=== PATIENT | male | born 1965 | race Caucasian/White ===

== ENCOUNTER 2018-10-02 15:59 | Emergency (ER) | payer SELFPAY ==
[~2018-10-02] VITALS: Ht 170.2 cm; Wt 94.0 kg
[2018-10-02] MEDS ORDERED: DEXAMETHASONE 10MG/ML PF INJ INJ ONE (16:30)
[2018-10-02] MEDS ORDERED: DEXAMETHASONE 10MG/ML PF INJ ONE (16:31)
[2018-10-02 16:50] VITALS: BP 167/99
== END 2018-10-02 16:44 | disposition home or self-care (01) ==
LOC: FSED 15:59
DX: L25.5 Unspecified contact dermatitis due to plants, except food (principal); I10 Essential (primary) hypertension
CPT/HCPCS: 96372; 99282